=== PATIENT | female | born 1930 | race Caucasian/White ===

== ENCOUNTER 2016-10-28 16:06 | Emergency (ER) | payer MEDICARE, BC ==
[2016-10-28] MEDS ORDERED: ASPIRIN 81 MG TABLET, CHEWABLE PO ONE (16:22)
[2016-10-28 16:34] LABS: ABSOLUTE EOSINOPHILS # (AUTO) 0.2 10^3/uL (0.0-0.6); ABSOLUTE LYMPHOCYTES (AUTO) 1.7 10^3/uL (0.5-4.7); ABSOLUTE MONOCYTES (AUTO) 0.5 10^3/uL (0.1-1.4); ABSOLUTE NEUT (AUTO) 3.8 10^3/uL (1.7-8.2); BASOPHILS % (AUTO) 0.2 % (0-2); EOSINOPHILS % (AUTO) 3.1 % (0-6); HEMATOCRIT 41.6 % (36.0-47.0); HEMOGLOBIN 13.5 g/dL (12.0-15.5); HGB HCT DIFFERENCE -1.1; LYMPHOCYTES % (AUTO) 27.7 % (13-45); MEAN CORPUSCULAR HEMOGLOBIN 28.2 pg (27.0-33.4); MEAN CORPUSCULAR HGB CONC 32.5 g/dL (32.0-36.0); MEAN CORPUSCULAR VOLUME 87 fl (80-97); MONOCYTES % (AUTO) 7.4 % (3-13); SEGMENTED NEUTROPHILS % (AUTO) 61.6 % (42-78); WHITE BLOOD COUNT 6.2 10^3/uL (4.0-10.5)
[2016-10-28 16:42] LABS: ALANINE AMINOTRANSFERASE 18 U/L (9-52); ALBUMIN 3.4 g/dL (3.5-5.0); ALKALINE PHOSPHATASE 112 U/L (38-126); ANION GAP 11 (5-19); ASPARTATE AMINO TRANSFERASE 18 U/L (14-36); BILIRUBIN,TOTAL 0.7 mg/dL (0.2-1.3); BLOOD UREA NITROGEN 22 mg/dL (7-20); CALCIUM 8.7 mg/dL (8.4-10.2); CARBON DIOXIDE 25 mmol/L (22-30); CHLORIDE 105 mmol/L (98-107); CREATINE KINASE 48 U/L (30-135); CREATININE RESULT 1.86 mg/dL (0.52-1.25); GLUCOSE 99 mg/dL (75-110); POTASSIUM 4.5 mmol/L (3.6-5.0); SODIUM 141.2 mmol/L (137-145); TOTAL PROTEIN 7.1 g/dL (6.3-8.2)
[2016-10-28 16:57] LABS: CREATINE KINASE MB 0.94 ng/mL (<4.55)
[2016-10-28 16:58] LABS: TROPONIN I < 0.012 ng/mL
--- NOTE | 2016-10-28 17:20 | ER Document Report ---
ED General - General Mode of Arrival: Medic Information source: Patient TRAVEL OUTSIDE OF THE [place] IN LAST 30 DAYS: No - HPI Patient complains to provider of: Chest Pain Onset: This morning - 0400 Onset/Duration: Sudden, Persistent Associated symptoms: Chest pain. denies: Sweating <EDGARDO WEEKS - Last Filed: 10/28/16 17:54> <SIGIFREDO RHODES - Last Filed: 10/28/16 19:56> - General Chief Complaint: Chest Pain Stated Complaint: LEFT ARM PAIN Notes: Patient is an 86-year-old female presenting to the emergency department concerned of chest pain onset at 0400 this morning. Patient describes the pain as a sharp pain that radiates into her left arm and back. Patient took 3 nitroglycerin at approximately 0400 when she first noticed the pain, it helped for a while, but the pain returned. At about 0700, patient took another 3 nitroglycerin, which again helped, but the pain returned. Patient has taken a total of 8 nitroglycerin today. Patient has a history of 4 heart attacks, the most recent being greater than 12 years ago. Patient has had a 4 vessel bypass and a pacemaker. Patient denies diaphoresis or shortness of breath. (EDGARDO WEEKS) - Related Data Allergies/Adverse Reactions: iodine [Iodine] Allergy (Verified 03/22/15 11:33) BREATHING nitrofurantoin macrocrystalline [From Macrodantin] Allergy (Verified 03/22/15 11 :33) RASH Sulfa (Sulfonamide Antibiotics) Allergy (Verified 03/22/15 11:33) FAINTED Past Medical History - Social History Smoking Status: Unknown if Ever Smoked Cigarette use (# per day): No Chew tobacco use (# tins/day): No Frequency of alcohol use: None Family History: Reviewed & Not Pertinent - Past Medical History Cardiac Medical History: Reports: Hx Congestive Heart Failure, Hx Heart Attack - 4, Hx Hypercholesterolemia, Hx Hypertension - COREG Pulmonary Medical History: Denies: Hx Asthma Neurological Medical History: Denies: Hx Cerebrovascular Accident, Hx Seizures Endocrine Medical History: Reports: Hx Diabetes Mellitus Type 2 Malignancy Medical History: Reports: Hx Renal (Kidney) Cancer GI Medical History: Denies: Hx Hepatitis, Hx Hiatal Hernia, Hx Ulcer Musculoskeltal Medical History: Reports Hx Arthritis Infectious Medical History: Denies: Hx Hepatitis Past Surgical History: Reports: Hx Cardiac Surgery - pacer/defib placement, Hx Kidney (Renal Surgery) - Left nephrectomy, Hx Open Heart Surgery - CABG, CHF, Hx Pacemaker. Denies: Hx Hysterectomy, Hx Mastectomy - Immunizations Hx Diphtheria, Pertussis, Tetanus Vaccination: No Hx Pneumococcal Vaccination: 09/29/11 <EDGARDO WEEKS - Last Filed: 10/28/16 17:54> Review of Systems - Review of Systems Constitutional: No symptoms reported. denies: Diaphoresis EENT: No symptoms reported Cardiovascular: See HPI, Chest pain Respiratory: No symptoms reported Gastrointestinal: No symptoms reported Genitourinary: No symptoms reported Female Genitourinary: No symptoms reported Musculoskeletal: See HPI, Back pain, Other - Pain over Left shoulder into arm Skin: No symptoms reported Hematologic/Lymphatic: No symptoms reported Neurological/Psychological: No symptoms reported <EDGARDO WEEKS - Last Filed: 10/28/16 17:54> Physical Exam - General General appearance: Alert - Respiratory Respiratory status: No respiratory distress Chest status: Tender - Tenderness to left ribs Breath sounds: Normal Chest palpation: Normal - Cardiovascular Rhythm: Regular Heart sounds: Normal auscultation Murmur: No - Abdominal Inspection: Obese Distension: No distension Bowel sounds: Normal Tenderness: Nontender Organomegaly: No organomegaly - Back Back: Normal, Nontender - Extremities General lower extremity: Normal inspection Shoulder: Tender - Left shoulder tender to palpation - Neurological Neuro grossly intact: Yes Cognition: Normal Markell Coma Scale Eye Opening: Spontaneous Markell Coma Scale Verbal: Oriented Portal Coma Scale Motor: Obeys Commands Portal Coma Scale Total: 15 Speech: Normal - Psychological Associated symptoms: Normal affect, Normal mood - Skin Skin Temperature: Warm Skin Moisture: Dry Skin Color: Normal <EDGARDO WEEKS - Last Filed: 10/28/16 17:54> Course - Laboratory Result Diagrams: 10/28/16 16:10 10/28/16 16:10 <EDGARDO WEEKS - Last Filed: 10/28/16 17:54> - Laboratory Result Diagrams: 10/28/16 16:10 10/28/16 16:10 - EKG Interpretation by [facility] EKG shows normal: Sinus rhythm, [place], Intervals, QRS Complexes, ST-T Waves Rate: Normal - 74 Rhythm: Other - Atrial sensed ventricular paced rhythm <SIGIFREDO RHODES - Last Filed: 10/28/16 19:56> - Re-evaluation Re-evalutation: 10/28/16 19:51 The patient has reproducible chest wall and shoulder pain. The EKG does not show acute change. The initial and repeat troponins are undetectable several hours after the onset of constant pain. (SIGIFREDO RHODES) - Vital Signs Vital signs: Temp Pulse Resp BP Pulse Ox 98.4 F 14 153/73 H 95 10/28/16 19:20 10/28/16 19:17 10/28/16 19:17 10/28/16 19:17 (EDGARDO WEEKS) (SIGIFREDO RHODES) - Laboratory Laboratory results interpreted by me: 10/28/16 16:10 BUN 22 H Creatinine 1.86 H Est GFR ( Amer) 31 L Est GFR (Non-Af Amer) 26 L Albumin 3.4 L (EDGARDO WEEKS) (SIGIFREDO RHODES) Discharge <EDGARDO WEEKS - Last Filed: 10/28/16 17:54> <SIGIFREDO RHODES - Last Filed: 10/28/16 19:56> - Discharge Clinical Impression: Chest wall pain Shoulder pain, left Qualifiers: Chronicity: acute Qualified Code(s): M25.512 - Pain in left shoulder Condition: Stable Disposition: HOME, SELF-CARE Additional Instructions: Chest Wall and Left Shoulder Muscle Pain: Your chest pain has been diagnosed as coming from the chest wall. This is often caused by straining the muscles or joints in the chest during physical activity, direct trauma, coughing, or vigorous vomiting. Occasionally, no cause can be found. Rest from strenuous physical activity. This kind of chest and shoulder pain is usually made worse by movement of the arm. If the pain is new, and seems to be due to muscle strain, cold packs can help. Otherwise, apply gentle warmth to the painful area for 15 minutes every hour or two. You should contact the doctor immediately if things change. Further evaluation is needed if you develop a fever or cough, if the nature of the pain changes, or if you become short of breath. TAKE TYLENOL FOR PAIN. TRY MOIST HEAT. FOLLOW UP WITH YOUR DOCTOR TOMORROW IF NOT IMPROVING. RETURN TO THE EMERGENCY ROOM IF ANY NEW OR WORSENING SYMPTOMS. Scribe Attestation: 10/28/16 19:56 I personally performed the services described in the documentation, reviewed and edited the documentation which was dictated to the scribe in my presence, and it accurately records my words and actions. (SIGIFREDO RHODES) Scribe Documentation - Scribe Written by J Luis:: Edgardo Weeks 10/28/2016 1720 acting as scribe for :: Bertha <EDGARDO WEEKS - Last Filed: 10/28/16 17:54>
[2016-10-28 20:26] VITALS: BP 160/82
--- NOTE | 2016-10-29 00:03 | EKG REPORT ---
SEVERITY:- ABNORMAL ECG - ATRIAL-SENSED VENTRICULAR-PACED RHYTHM : Confirmed by: Barbara Joseph 29-Oct-2016 00:02:59
== END 2016-10-28 20:26 | disposition home or self-care (01) ==
LOC: ER 16:06
DX: R07.89 Other chest pain (principal); M25.512 Pain in left shoulder; M79.602 Pain in left arm; I50.9 Heart failure, unspecified; I11.0 Hypertensive heart disease with heart failure; E66.9 Obesity, unspecified; E78.00 Pure hypercholesterolemia, unspecified; E11.9 Type 2 diabetes mellitus without complications; I25.2 Old myocardial infarction; Z85.528 Personal history of other malignant neoplasm of kidney; Z88.2 Allergy status to sulfonamides; Z95.810 Presence of automatic (implantable) cardiac defibrillator; Z95.2 Presence of prosthetic heart valve
CPT/HCPCS: 36415; 71010; 80053; 82550; 82553; 84484; 85025; 93005; 93010; 99285

== ENCOUNTER 2018-10-11 06:21 | Inpatient (IN) | payer MEDICARE, BC ==
[2018-10-11] MEDS ORDERED: NORMAL SALINE 1000 ML 1,000 ML IV ONE (06:51)
[2018-10-11 07:02] LABS: ABSOLUTE MONOCYTES (AUTO) 0.4 10^3/uL (0.1-1.4); ABSOLUTE NEUT (AUTO) 4.4 10^3/uL (1.7-8.2); BASOPHILS % (AUTO) 0.4 % (0-2); EOSINOPHILS % (AUTO) 0.1 % (0-6); HEMATOCRIT 42.7 % (36.0-47.0); LYMPHOCYTES % (AUTO) 17.5 % (13-45); MEAN CORPUSCULAR HEMOGLOBIN 29.4 pg (27.0-33.4); MEAN CORPUSCULAR HGB CONC 32.8 g/dL (32.0-36.0); MEAN CORPUSCULAR VOLUME 90 fl (80-97); MONOCYTES % (AUTO) 7.4 % (3-13); PLATELET COUNT 170 10^3/uL (150-450); RED BLOOD COUNT 4.76 10^6/uL (3.72-5.28); RED CELL DISTRIBUTION WIDTH 14.3 % (11.5-14.0); SEGMENTED NEUTROPHILS % (AUTO) 74.6 % (42-78); TOTAL CELLS COUNTED % (AUTO) 100 %; WHITE BLOOD COUNT 5.9 10^3/uL (4.0-10.5)
[2018-10-11 07:06] LABS: INTERNATIONAL RATION (INR) 1.11; PROTHROMBIN TIME 14.9 SEC (11.4-15.4)
[2018-10-11 07:11] LABS: VENOUS BLOOD BASE EXCESS -7.1 mmol/L; VENOUS BLOOD PCO2 35.1 mmHg (35-63); VENOUS BLOOD PH 7.33 (7.30-7.42)
[2018-10-11 07:21] LABS: ALANINE AMINOTRANSFERASE 91 U/L (9-52); ALBUMIN 3.9 g/dL (3.5-5.0); ALKALINE PHOSPHATASE 91 U/L (38-126); ANION GAP 13 (5-19); ASPARTATE AMINO TRANSFERASE 117 U/L (14-36); BILIRUBIN,DIRECT 0.5 mg/dL (0.0-0.4); BILIRUBIN,TOTAL 1.5 mg/dL (0.2-1.3); BLOOD UREA NITROGEN 37 mg/dL (7-20); CALCIUM 9.2 mg/dL (8.4-10.2); CARBON DIOXIDE 17 mmol/L (22-30); CHLORIDE 108 mmol/L (98-107); CREATINE KINASE 58 U/L (30-135); GLUCOSE 169 mg/dL (75-110); SODIUM 137.6 mmol/L (137-145); TOTAL PROTEIN 6.8 g/dL (6.3-8.2)
[2018-10-11 07:28] LABS: POTASSIUM 6.1 mmol/L (3.6-5.0)
[2018-10-11] MEDS ORDERED: ALBUTEROL SULFATE 0.083% NEB 2.5 MG/3 ML AMPUL NEB ONE (07:28)
[2018-10-11] MEDS ORDERED: INSULIN REG, HUMAN 100 UNIT/ML 3 ML VIAL (PYX) IV ONE (07:29)
[2018-10-11] MEDS ORDERED: CALCIUM GLUCONATE 1000 MG/10 ML INJ IV ONE (07:29)
[2018-10-11] MEDS ORDERED: DEXTROSE 50%-WATER 25 GM/50 ML DISP.SYRIN IV ONE (07:29)
--- NOTE | 2018-10-11 07:38 | RADIOLOGY REPORT (SQ) ---
CLINICAL HISTORY: ams COMPARISON: None. TECHNIQUE: XR CHEST 1 VIEW 10/11/2018 7:12 AM CORRECTIONS NURSE FINDINGS: The heart is moderately enlarged following sternotomy. Left AICD is in place.Lungs are clear without consolidation, atelectasis, mass or edema. There is no pleural effusion. There is no pneumothorax. There are no acute osseous findings. IMPRESSION: Clear lungs.
[2018-10-11 07:39] LABS: TROPONIN I 0.056 ng/mL
[2018-10-11 07:45] LABS: AMORPHOUS SEDIMENT,URINE TRACE /HPF; APPEARANCE,URINE SLIGHTLY-CLOUDY; BILIRUBIN,URINE NEGATIVE (NEGATIVE); COLOR,URINE YELLOW; GLUCOSE, URINE NEGATIVE (NEGATIVE); KETONES,URINE NEGATIVE (NEGATIVE); LEUKOCYTE ESTERASE,URINE MODERATE (NEGATIVE); NITRITE,URINE NEGATIVE (NEGATIVE); PROTEIN,URINE NEGATIVE (NEGATIVE); URINE SPECIFIC GRAVITY 1.013; UROBILINOGEN,URINE NEGATIVE mg/dL (<2.0)
[2018-10-11 08:02] LABS: ACETAMINOPHEN < 10 ug/mL (10-30); ALCOHOL < 10 mg/dL (NONE DETECTED); SALICYLATE < 1.0 mg/dL (2.0-20.0)
[2018-10-11 08:02] LABS: URINE AMPHETAMINES SCREEN NEGATIVE; URINE BARBITURATES SCREEN NEGATIVE; URINE BENZODIAZEPINES SCREEN NEGATIVE; URINE COCAINE SCREEN NEGATIVE; URINE MARIJUANA (THC) SCREEN NEGATIVE; URINE METHADONE SCREEN NEGATIVE; URINE PHENCYCLIDINE SCREEN NEGATIVE
[2018-10-11] MEDS ORDERED: DEXTROSE 5%-WATER 250 ML with NOREPINEPHRINE BITARTRATE 4 MG IV PRN ×2 (08:07)
[2018-10-11] MEDS ORDERED: SODIUM BICARBONATE 8.4% INJ 50 MEQ/50 ML DISP.SYRIN IV ONE (08:11)
[2018-10-11] MEDS ORDERED: CEFTRIAXONE 1 GM/D5W RTU 1 GM/50 ML RTUPB IV ONE ×2 (08:11→10:58)
[2018-10-11] MEDS ORDERED: NOREPINEPHRINE BITARTRATE INJ/PF 4 MG/4 ML SDV IV ONE (08:38)
--- NOTE | 2018-10-11 08:47 | EKG REPORT ---
SEVERITY:- ABNORMAL ECG - SINUS TACHYCARDIA LEFT BUNDLE BRANCH BLOCK : Confirmed by: Jerson Moulton MD 11-Oct-2018 08:46:55
--- NOTE | 2018-10-11 08:47 | EKG REPORT ---
SEVERITY:- ABNORMAL ECG - SINUS TACHYCARDIA FIRST DEGREE AV BLOCK LEFT BUNDLE BRANCH BLOCK : Confirmed by: Jerson Moulton MD 11-Oct-2018 08:46:36
[2018-10-11] MEDS ORDERED: NORMAL SALINE 500 ML IV ONE ×2 (09:11→10:40)
[2018-10-11 09:54] LABS: ANION GAP 10 (5-19); BLOOD UREA NITROGEN 38 mg/dL (7-20); CALCIUM 8.1 mg/dL (8.4-10.2); CARBON DIOXIDE 20 mmol/L (22-30); CHLORIDE 109 mmol/L (98-107); GLUCOSE 221 mg/dL (75-110); SODIUM 139.4 mmol/L (137-145)
[2018-10-11 10:01] LABS: POTASSIUM 3.9 mmol/L (3.6-5.0)
--- NOTE | 2018-10-11 10:12 | RADIOLOGY REPORT (SQ) ---
EXAM DESCRIPTION: CHEST SINGLE VIEW COMPLETED DATE/TIME: 10/11/2018 9:49 am REASON FOR STUDY: CENTRAL LINE PLACEMENT COMPARISON: Chest radiograph earlier the same day EXAM PARAMETERS: NUMBER OF VIEWS: One view. TECHNIQUE: Single frontal radiographic view of the chest acquired. RADIATION DOSE: NA LIMITATIONS: None. FINDINGS: LUNGS AND PLEURA: No opacities, masses or pneumothorax. No pleural effusion. MEDIASTINUM AND HILAR STRUCTURES: No masses. Contour normal. HEART AND VASCULAR STRUCTURES: Heart enlarged. No overt failure. BONES: No acute findings. HARDWARE: New venous access catheter via right IJ approach. Tip at cavoatrial junction. Other cardi ac hardware stable. OTHER: No other significant finding. IMPRESSION: New venous access catheter tip at the expected location. No pneumothorax. TECHNICAL DOCUMENTATION: JOB ID: [id number] [employer]- All Rights Reserved Reading location - IP/workstation name: [email or web address]
--- NOTE | 2018-10-11 10:49 | RADIOLOGY REPORT (SQ) ---
EXAM DESCRIPTION: CT HEAD WITHOUT COMPLETED DATE/TIME: 10/11/2018 10:37 am REASON FOR STUDY: ams COMPARISON: 01/30/2014 TECHNIQUE: Axial images acquired through the brain without intravenous contrast. Images reviewed wi th bone, brain and subdural windows. Additional sagittal and coronal reconstructions were generated. Images stored on PACS. All CT scanners at this facility use dose modulation, iterative reconstruction, and/or weight based d osing when appropriate to reduce radiation dose to as low as reasonably achievable (ALARA). [facility]: Dose Right [facility]: CareDose [facility]: Dose Right [facility]: Teradose 4D [facility]: Smart [employer] RADIATION DOSE: CT Rad equipment meets quality standard of care and radiation dose reduction techniq ues were employed. CTDIvol: 48.6 mGy. DLP: 905 mGy-cm.mGy. LIMITATIONS: None. FINDINGS: VENTRICLES: Prominent. CEREBRUM: No masses. No hemorrhage. No midline shift. Areas of low density in the white matter mos t likely due to chronic micro-vascular ischemic change. No evidence for acute infarction. Old right parietal infarct. CEREBELLUM: No masses. No hemorrhage. No alteration of density. No evidence for acute infarction. EXTRAAXIAL SPACES: Age-related involutional change. No fluid collections. No masses. ORBITS AND GLOBE: No intra- or extraconal masses. Normal contour of globe without masses. CALVARIUM: No fracture. PARANASAL SINUSES: No fluid or mucosal thickening. SOFT TISSUES: No mass or hematoma. OTHER: No other significant finding. IMPRESSION: CHRONIC CHANGES OF ATROPHY AND MICROVASCULAR ISCHEMIA. Old right parietal infarct. NO ACUTE PROCESS. EVIDENCE OF ACUTE STROKE: NO. TECHNICAL DOCUMENTATION: JOB ID: [id number] Quality ID # [id number]: Final reports with documentation of one or more dose reduction techniques (e.g., Au tomated exposure control, adjustment of the mA and/or kV according to patient size, use of iterative reconstruction technique) 2010 [employer]- All Rights Reserved Reading location - IP/workstation name: [email or web address]
[2018-10-11 11:00] LABS: A TYPE INFLUENZA AG NEGATIVE (NEGATIVE); B INFLUENZA AG NEGATIVE (NEGATIVE)
[2018-10-11] MEDS ORDERED: ACETAMINOPHEN 325 MG TABLET PO PRN (11:45)
[2018-10-11] MEDS ORDERED: ONDANSETRON HCL INJ/PF 4 MG/2 ML SDV IV PRN (11:45)
[2018-10-11] MEDS ORDERED: NITROGLYCERIN 0.4 MG/TAB 25 TAB/BOTTLE SL PRN (11:51)
[2018-10-11] MEDS ORDERED: PROPYLENE GLYCOL OP PRN (11:51)
[2018-10-11] MEDS ORDERED: PEG OP PRN (11:51)
--- NOTE | 2018-10-11 12:05 | ER Document Report ---
ED General - General Chief Complaint: Altered Mental Status Stated Complaint: TROUBLE BREATHING Time Seen by Provider: 10/11/18 06:40 TRAVEL OUTSIDE OF THE [place] IN LAST 30 DAYS: No - HPI Patient complains to provider of: Altered mental status Notes: Patient was brought in for altered mental status. According EMS called for altered mental state. Fortunately initial evaluation there is no family at bedside. Patient upon my evaluation looks to be sleeping arouses to voice is able to answer simple yes/no questions however is confused to date time and year. Patient also also repeats herself. Patient is tachycardic upon my evaluation. Patient is very adamant that she is in no pain no chest pain abdominal pain patient denies any fever chills nausea vomiting diarrhea. Family later arrives and is able to add to the HPI process. States that the patient has not been eating or drinking hardly like her normal self for the past 24 hours. States the patient mostly can take care of herself at home usually is a no x3. A brief review of the patient's past medical records available in [employer] was performed - Related Data Allergies/Adverse Reactions: iodine [Iodine] Allergy (Verified 03/22/15 11:33) BREATHING nitrofurantoin macrocrystalline [From Macrodantin] Allergy (Verified 03/22/15 11:33) RASH Sulfa (Sulfonamide Antibiotics) Allergy (Verified 03/22/15 11:33) FAINTED Past Medical History - Social History Smoking Status: Unknown if Ever Smoked Family History: Reviewed & Not Pertinent Patient has suicidal ideation: No Patient has homicidal ideation: No - Past Medical History Cardiac Medical History: Reports: Hx Congestive Heart Failure, Hx Heart Attack - 4, Hx Hypercholesterolemia, Hx Hypertension - COREG Pulmonary Medical History: Denies: Hx Asthma Neurological Medical History: Denies: Hx Cerebrovascular Accident, Hx Seizures Endocrine Medical History: Reports: Hx Diabetes Mellitus Type 2 Renal/ Medical History: Denies: Hx Peritoneal Dialysis Malignancy Medical History: Reports: Hx Renal (Kidney) Cancer GI Medical History: Denies: Hx Hepatitis, Hx Hiatal Hernia, Hx Ulcer Musculoskeletal Medical History: Reports Hx Arthritis Infectious Medical History: Denies: Hx Hepatitis Past Surgical History: Reports: Hx Cardiac Surgery - pacer/defib placement, Hx Kidney (Renal Surgery) - Left nephrectomy, Hx Open Heart Surgery - CABG, CHF, Hx Pacemaker. Denies: Hx Hysterectomy, Hx Mastectomy - Immunizations Hx Diphtheria, Pertussis, Tetanus Vaccination: No Hx Pneumococcal Vaccination: 09/29/11 Review of Systems - Review of Systems -: Yes ROS unobtainable due to patient's medical condition - Altered mental state Physical Exam - Vital signs Vitals: Resp Pulse Ox 22 H 95 10/11/18 06:29 10/11/18 06:29 Interpretation: Tachycardic - General General appearance: Appears well, Alert - HEENT Head: Normocephalic, Atraumatic Eyes: Normal Pupils: PERRL - Respiratory Respiratory status: No respiratory distress Chest status: Nontender Breath sounds: Normal Chest palpation: Normal - Cardiovascular Rhythm: Tachycardia Heart sounds: Normal auscultation Murmur: No - Abdominal Inspection: Normal Distension: No distension Bowel sounds: Normal Tenderness: Nontender Organomegaly: No organomegaly - Back Back: Normal, Nontender - Extremities General upper extremity: Normal inspection, Nontender, Normal color, Normal ROM, Normal temperature General lower extremity: Normal inspection, Nontender, Normal color, Normal ROM, Normal temperature, Normal weight bearing. No: Fritz's sign - Neurological Neuro grossly intact: Yes Cognition: Normal Wheelwright Coma Scale Eye Opening: Spontaneous Wheelwright Coma Scale Verbal: Confused Markell Coma Scale Motor: Obeys Commands Markell Coma Scale Total: 14 Speech: Normal Motor strength normal: LUE, RUE, LLE, RLE Sensory: Normal - Psychological Associated symptoms: Normal affect, Normal mood - Skin Skin Temperature: Warm Skin Moisture: Dry Skin Color: Normal Course - Re-evaluation Re-evalutation: 10/11/18 14:22 Ms. laboratory states that shows significant signs of hyperkalemia. EKG did show upon response with widening. Patient was initially treated with IV calcium gluconate upon initiation of the IV calcium gluconate patient became significantly hypotensive with systolics in the 40s. This was stopped patient reevaluated EKGs not show any acute changes again reevaluation patient denied any pain denies any chest pain or abdominal pain. IV fluids were administered with subsequent slight improvement of her blood pressure to the 80s and hence to systolics in the 90s. After long discussion with the family member stated that they did want medical treatment at that time agreed to no intubation but did agree with administration of Levophed and placement of a central line. This was placed as noted. Patient continued to improve her blood pressure with levo fed. They also continue to gently hydrate the patient as he does have a history of CHF. Discussed with the hospital staff will admit the patient to general medical floor as after the hospitalist did discuss the patient's prognosis and medical conditions with the family decided to make the family member a DNR. Levophed was withheld. More likely patient has underlying sepsis due to urinary tract infection - Vital Signs Vital signs: Temp Pulse Resp BP Pulse Ox 97.6 F 19 129/78 H 100 10/11/18 12:29 10/11/18 13:41 10/11/18 13:41 10/11/18 13:41 - Laboratory Result Diagrams: 10/11/18 06:45 10/11/18 09:19 Laboratory results interpreted by me: 10/11/18 10/11/18 10/11/18 06:45 06:45 06:45 RDW 14.3 H VBG HCO3 Potassium 6.1 H* Chloride 108 H Carbon Dioxide 17 L BUN 37 H Creatinine 2.92 H Est GFR ( Amer) 18 L Est GFR (Non-Af Amer) 15 L Glucose 169 H POC Glucose Calcium Total Bilirubin 1.5 H Direct Bilirubin 0.5 H AST 117 H ALT 91 H Ammonia NT-Pro-B Natriuret Pep 42578 H Lipase Urine Blood Ur Leukocyte Esterase Salicylates Acetaminophen 10/11/18 10/11/18 10/11/18 06:45 06:45 06:45 RDW VBG HCO3 18.0 L Potassium Chloride Carbon Dioxide BUN Creatinine Est GFR ( Amer) Est GFR (Non-Af Amer) Glucose POC Glucose Calcium Total Bilirubin Direct Bilirubin AST ALT Ammonia < 8.7 L NT-Pro-B Natriuret Pep Lipase 309.9 H Urine Blood Ur Leukocyte Esterase Salicylates Acetaminophen 10/11/18 10/11/18 10/11/18 06:45 07:12 07:23 RDW VBG HCO3 Potassium Chloride Carbon Dioxide BUN Creatinine Est GFR ( Amer) Est GFR (Non-Af Amer) Glucose POC Glucose 165 H Calcium Total Bilirubin Direct Bilirubin AST ALT Ammonia NT-Pro-B Natriuret Pep Lipase Urine Blood MODERATE H Ur Leukocyte Esterase MODERATE H Salicylates < 1.0 L Acetaminophen < 10 L 10/11/18 10/11/18 08:08 09:19 RDW VBG HCO3 Potassium Chloride 109 H Carbon Dioxide 20 L BUN 38 H Creatinine 2.91 H Est GFR ( Amer) 18 L Est GFR (Non-Af Amer) 15 L Glucose 221 H POC Glucose 164 H Calcium 8.1 L Total Bilirubin Direct Bilirubin AST ALT Ammonia NT-Pro-B Natriuret Pep Lipase Urine Blood Ur Leukocyte Esterase Salicylates Acetaminophen Procedures - Central Line Right Internal jugular Consent obtained: Yes Central line pre-insertion: Sterile PPE donned, Betadine prep applied, Chloraprep applied, Sterile drapes applied Central line lumen type: Triple Anesthetic type: 1% Lidocaine mL's of anesthesia: 2 Ultrasound guided: Yes CM at insertion site: 20 Line secured with sutures: Yes Central line post-insertion: Blood return from lumens, Sutured, Sterile dressing applied, Position confirmed w/ CXR Number of attempts: 2 - Initially tried left side however had difficulty passing the wire Complications: No Critical Care Note - Critical Care Note Total time excluding time spent on procedures (mins): 50 Comments: Multiple evaluation for patient with sepsis and [id number] Discharge - Discharge Clinical Impression: Urinary tract infection, Coronary artery disease, Sepsis, Diabetes, Acute on chronic kidney disease, Congestive heart failure (CHF), Pacemaker Condition: Fair Disposition: ADMITTED INPATIENT Admitting Provider: Hospitalist - [facility] Admitted: Medical Floor
[2018-10-11] MEDS ORDERED: NORMAL SALINE 1000 ML 1,000 ML IV PRN (12:11)
--- NOTE | 2018-10-11 12:40 | PDOC H&P ---
History of Present Illness Admission Date/PCP: 10/11/18 12:07 Patient complains of: Family brought her to the ER with complaints of diarrhea and dehydration. History of Present Illness: CANDY DOUGHERTY is a 88 year old female with history of congestive heart failure with defibrillator/pacemaker, coronary artery disease with a stent placements, renal carcinoma status post left kidney removal, history of hypertension and diabetes came to the emergency room actually brought to the emergency room after she was less responsive and slid off the couch according to the son she also has large loose stools this morning EMS was called brought to the emergency room for further evaluation. The workup was done in the ER found to have a UTI and potassium of 6.1 calcium gluconate was given in the ER followed by dropping the blood pressures patient was stopped started on Levophed and IV fluids given gentle IV fluids because of the underlying history of congestive heart failure and medical consult was called for admission. I went to talk to the patient in the emergency room she is alert and awake communicating very well son is at bedside no confusion at all initially the ER physician thought patient was in altered mental status as mentioned above by the time and went to see the patient she is back to her baseline. Patient denies any history of fever but given the cough for the last 3-4 days whitish sputum no nausea no vomiting one episode of large loose stool this morning no headaches no falls no dizziness. Denies any changes in the appetite. She has this chronic rash on her face as per the family it was there for a long time may be at least few months. Last living well situation with the patient she admitted that she does not have a living well but both sons have a power of animal physiologist privileges. Patient and son wants to be DNR/DNI the document was signed and given to the given to the nurse charge. Past Medical History Cardiac Medical History: Reports: Congestive Heart Failure, Myocardial Infarction - 4, Hyperlipidema, Hypertension - COREG Pulmonary Medical History: Denies: Asthma Neurological Medical History: Denies: Seizures Endocrine Medical History: Reports: Diabetes Mellitus Type 2 Malignancy Medical History: Reports: Renal (Kidney) Cancer GI Medical History: Denies: Hepatitis, Hiatal Hernia Musculoskeltal Medical History: Reports: Arthritis Hematology: Denies: Anemia, Sickle Cell Disease Past Surgical History Past Surgical History: Reports: Cholecystectomy, Pacemaker Denies: Amputation, Hysterectomy, Mastectomy Social History Smoking Status: Never Smoker Frequency of Alcohol Use: None Hx Recreational Drug Use: No Hx Prescription Drug Abuse: No - Advance Directive Resuscitation Status: Do Not Resuscitate Family History Family History: Reviewed & Not Pertinent Parental Family History Reviewed: Yes - Of the sons has a lymphoma. Children Family History Reviewed: Yes Sibling(s) Family History Reviewed.: Yes Medication/Allergy Allergies/Adverse Reactions: iodine [Iodine] Allergy (Verified 03/22/15 11:33) BREATHING nitrofurantoin macrocrystalline [From Macrodantin] Allergy (Verified 03/22/15 11:33) RASH Sulfa (Sulfonamide Antibiotics) Allergy (Verified 03/22/15 11:33) FAINTED Physical Exam Vital Signs: Temp Pulse Resp BP Pulse Ox 97.4 F 18 84/66 L 97 10/11/18 09:25 10/11/18 12:11 10/11/18 12:11 10/11/18 12:11 Intake & Output 10/10/18 10/11/18 10/12/18 06:59 06:59 06:59 Intake Total 532 Balance 532 Weight 76.1 kg General appearance: PRESENT: no acute distress Head exam: PRESENT: atraumatic Eye exam: PRESENT: PERRLA Mouth exam: PRESENT: dry mucosa Neck exam: ABSENT: carotid bruit, JVD, lymphadenopathy, thyromegaly Respiratory exam: PRESENT: clear to auscultation lino. ABSENT: rales, rhonchi, wheezes Cardiovascular exam: PRESENT: RRR. ABSENT: diastolic murmur, rubs, systolic murmur GI/Abdominal exam: PRESENT: normal bowel sounds, soft. ABSENT: distended, guarding, mass, organolmegaly, rebound, tenderness Extremities exam: PRESENT: full ROM. ABSENT: calf tenderness, clubbing, pedal e pete Neurological exam: PRESENT: alert, awake, oriented to person, oriented to place, oriented to time, oriented to situation, CN II-XII grossly intact. ABSENT: motor sensory deficit Psychiatric exam: PRESENT: appropriate affect, normal mood. ABSENT: homicidal ideation, suicidal ideation Skin exam: PRESENT: rash Results Laboratory Results: 10/11/18 06:45 10/11/18 09:19 10/11/18 10/11/18 10/11/18 06:45 06:45 06:45 WBC 5.9 RBC 4.76 Hgb 14.0 Hct 42.7 MCV 90 MCH 29.4 MCHC 32.8 RDW 14.3 H Plt Count 170 Seg Neutrophils % 74.6 Lymphocytes % 17.5 Monocytes % 7.4 Eosinophils % 0.1 Basophils % 0.4 Absolute Neutrophils 4.4 Absolute Lymphocytes 1.0 Absolute Monocytes 0.4 Absolute Eosinophils 0.0 Absolute Basophils 0.0 VBG pH VBG pCO2 VBG HCO3 VBG Base Excess Sodium 137.6 Potassium 6.1 H* Chloride 108 H Carbon Dioxide 17 L Anion Gap 13 BUN 37 H Creatinine 2.92 H Est GFR ( Amer) 18 L Est GFR (Non-Af Amer) 15 L Glucose 169 H Lactic Acid 2.1 Calcium 9.2 Total Bilirubin 1.5 H AST 117 H ALT 91 H Alkaline Phosphatase 91 Ammonia Total Protein 6.8 Albumin 3.9 Lipase Urine Color Urine Appearance Urine pH Ur Specific [place] Urine Protein Urine Glucose (UA) Urine Ketones Urine Blood Urine Nitrite Ur Leukocyte Esterase Urine WBC (Auto) Urine RBC (Auto) 10/11/18 10/11/18 10/11/18 06:45 06:45 06:45 WBC RBC Hgb Hct MCV MCH MCHC RDW Plt Count Seg Neutrophils % Lymphocytes % Monocytes % Eosinophils % Basophils % Absolute Neutrophils Absolute Lymphocytes Absolute Monocytes Absolute Eosinophils Absolute Basophils VBG pH 7.33 VBG pCO2 35.1 VBG HCO3 18.0 L VBG Base Excess -7.1 Sodium Potassium Chloride Carbon Dioxide Anion Gap BUN Creatinine Est GFR ( Amer) Est GFR (Non-Af Amer) Glucose Lactic Acid Calcium Total Bilirubin AST ALT Alkaline Phosphatase Ammonia < 8.7 L Total Protein Albumin Lipase 309.9 H Urine Color Urine Appearance Urine pH Ur Specific [place] Urine Protein Urine Glucose (UA) Urine Ketones Urine Blood Urine Nitrite Ur Leukocyte Esterase Urine WBC (Auto) Urine RBC (Auto) 10/11/18 10/11/18 10/11/18 07:12 09:19 11:08 WBC RBC Hgb Hct MCV MCH MCHC RDW Plt Count Seg Neutrophils % Lymphocytes % Monocytes % Eosinophils % Basophils % Absolute Neutrophils Absolute Lymphocytes Absolute Monocytes Absolute Eosinophils Absolute Basophils VBG pH VBG pCO2 VBG HCO3 VBG Base Excess Sodium 139.4 Potassium 3.9 D Chloride 109 H Carbon Dioxide 20 L Anion Gap 10 BUN 38 H Creatinine 2.91 H Est GFR ( Amer) 18 L Est GFR (Non-Af Amer) 15 L Glucose 221 H Lactic Acid 1.2 Calcium 8.1 L Total Bilirubin AST ALT Alkaline Phosphatase Ammonia Total Protein Albumin Lipase Urine Color YELLOW Urine Appearance SLIGHTLY-CLOUDY Urine pH 5.0 Ur Specific [place] 1.013 Urine Protein NEGATIVE Urine Glucose (UA) NEGATIVE Urine Ketones NEGATIVE Urine Blood MODERATE H Urine Nitrite NEGATIVE Ur Leukocyte Esterase MODERATE H Urine WBC (Auto) 29 Urine RBC (Auto) 10 10/11/18 10/11/18 06:45 06:45 Creatine Kinase 58 Troponin I 0.056 NT-Pro-B Natriuret Pep 40395 H Impressions: Chest X-Ray 10/11/18 07:12 IMPRESSION: Clear lungs. Head CT 10/11/18 07:13 IMPRESSION: CHRONIC CHANGES OF ATROPHY AND MICROVASCULAR ISCHEMIA. Old right parietal infarct. NO ACUTE PROCESS. EVIDENCE OF ACUTE STROKE: NO. Assessment & Plan - Diagnosis (1) Urinary tract infection Is this a current diagnosis for this admission?: Yes Plan: 10/11/2018 plan today is to place the patient in the medical floor because she is DNR/DNI lactic acid is going to repeat at this moment this evening initial lactic acid level is 1.2. Patient was started on IV Rocephin 1 g daily and levofloxacin to 50 mg IV daily because of the creatinine close to 4.0. Urine cultures blood cultures are pending. Sepsis protocol was initiated. (2) Sepsis Is this a current diagnosis for this admission?: Yes Plan: 10/11/2018 patient became hypotensive in the emergency room she was started on Levophed she is also became tachycardic altered mental status was noticed by the ER physician. So with this information patient's meets the criteria for sepsis protocol. Cultures urine culture was sent and patient was started on IV Rocephin 1 g daily and levofloxacin to 50 mg IV daily and repeat lactic acid is pending. Was started on gentle IV fluids at 50 cc/h because of the history of underlying congestive heart failure. (3) Chronic kidney disease, stage 4, severely decreased GFR Is this a current diagnosis for this admission?: Yes Plan: 10/11/2018 patient has history of renal cell carcinoma with left nephrectomy. Creatinine was 2.9 with a GFR of 15.[address] to [address] a consult for nephrology to follow tomorrow. (4) Congestive heart failure (CHF) Is this a current diagnosis for this admission?: Yes Plan: 10/11/2018 family and the patient is given the history of congestive heart failure with a pacemaker defibrillator we do not have any recent echocardiogram going to request for the echocardiogram today. - Time Time Spent: 50 to 70 Minutes Critical Time spent with patient: 15-24 minutes Medications reviewed and adjusted accordingly: Yes Anticipated discharge: Home
[2018-10-11] MEDS ORDERED: PROPYLENE GLYCOL OU PRN (15:34)
[2018-10-11] MEDS ORDERED: PEG OU PRN (15:34)
[2018-10-11] MEDS: DOCUSATE SODIUM 100 MG CAPSULE PO SCH (19:24)
--- NOTE | 2018-10-11 20:35 | EKG REPORT ---
SEVERITY:- ABNORMAL ECG - ATRIAL-SENSED VENTRICULAR-PACED RHYTHM : Confirmed by: Jerson Moulton MD 11-Oct-2018 20:34:45
[2018-10-11] MEDS ORDERED: FLUTICASONE NASAL SPRAY 50 MCG/SPRY 120 SPRAY/16 GM NASL PRN (22:00)
[2018-10-11] MEDS ORDERED: CARVEDILOL 6.25 MG TABLET PO SCH (22:00)
[2018-10-11] MEDS ORDERED: ATORVASTATIN CALCIUM 20 MG TABLET PO SCH (22:00)
[2018-10-12 04:57] LABS: ABSOLUTE MONOCYTES (AUTO) 0.3 10^3/uL (0.1-1.4); ABSOLUTE NEUT (AUTO) 3.6 10^3/uL (1.7-8.2); BASOPHILS % (AUTO) 0.2 % (0-2); EOSINOPHILS % (AUTO) 0.1 % (0-6); HEMATOCRIT 33.1 % (36.0-47.0); LYMPHOCYTES % (AUTO) 20.6 % (13-45); MEAN CORPUSCULAR HEMOGLOBIN 29.5 pg (27.0-33.4); MEAN CORPUSCULAR HGB CONC 33.4 g/dL (32.0-36.0); MEAN CORPUSCULAR VOLUME 89 fl (80-97); MONOCYTES % (AUTO) 5.8 % (3-13); PLATELET COUNT 122 10^3/uL (150-450); RED BLOOD COUNT 3.74 10^6/uL (3.72-5.28); RED CELL DISTRIBUTION WIDTH 13.9 % (11.5-14.0); SEGMENTED NEUTROPHILS % (AUTO) 73.3 % (42-78); TOTAL CELLS COUNTED % (AUTO) 100 %
[2018-10-12 05:18] LABS: ALANINE AMINOTRANSFERASE 242 U/L (9-52); ALBUMIN 2.5 g/dL (3.5-5.0); ALKALINE PHOSPHATASE 59 U/L (38-126); ANION GAP 6 (5-19); ASPARTATE AMINO TRANSFERASE 252 U/L (14-36); BILIRUBIN,DIRECT 0.4 mg/dL (0.0-0.4); BILIRUBIN,TOTAL 0.6 mg/dL (0.2-1.3); BLOOD UREA NITROGEN 42 mg/dL (7-20); CALCIUM 7.9 mg/dL (8.4-10.2); CARBON DIOXIDE 21 mmol/L (22-30); CHLORIDE 114 mmol/L (98-107); GLUCOSE 87 mg/dL (75-110); POTASSIUM 4.2 mmol/L (3.6-5.0); SODIUM 140.7 mmol/L (137-145)
[2018-10-12] MEDS ORDERED: NITROGLYCERIN 0.4 MG/TAB 25 TAB/BOTTLE SL PRN (09:22)
[2018-10-12] MEDS: CARVEDILOL 6.25 MG TABLET PO SCH ×2 (09:58→21:39)
[2018-10-12] MEDS: ASPIRIN 81 MG TABLET, ENT COATED PO SCH (09:58)
[2018-10-12] MEDS: DOCUSATE SODIUM 100 MG CAPSULE PO SCH ×2 (09:59→17:29)
[2018-10-12] MEDS: ENOXAPARIN SODIUM INJ 30 MG/0.3 ML DISP.SYRIN SUBCUT SCH (10:00)
[2018-10-12] MEDS ORDERED: CEFTRIAXONE INJ 1000 MG VIAL IV SCH (10:00)
[2018-10-12] MEDS: BISACODYL 5 MG TABEC PO PRN (10:00)
[2018-10-12] MEDS: LEVOFLOXACIN 250 MG/D5W RTU 250 MG/50 ML RTUPB IV SCH (10:01)
[2018-10-12] MEDS: CEFTRIAXONE 1 GM/D5W RTU 1 GM/50 ML RTUPB IV SCH (10:11)
--- NOTE | 2018-10-12 10:14 | PDOC PROGRESS REPORT ---
Subjective Progress Note for:: 10/12/18 Subjective:: 88-year-old female admitted with hypotension sepsis and UTI that was blood pressure is improved to 1255/62 and T-max is 98. Cultures are negative so far. Patient is able to participate in the physical therapy today. No acute events in the last 24 hours. Afebrile. Comfortably in the bed communicating very well. Complaining of slight cough requesting Mucinex. Reason For Visit: SEPSIS Physical Exam Vital Signs: Temp Pulse Resp BP Pulse Ox 98.0 F 73 14 125/62 96 10/12/18 08:05 10/12/18 08:05 10/12/18 08:05 10/12/18 08:05 10/12/18 08:05 Intake & Output 10/11/18 10/12/18 10/13/18 06:59 06:59 06:59 Intake Total 1582 Balance 1582 Weight 76.1 kg 79.7 kg General appearance: PRESENT: no acute distress Head exam: PRESENT: atraumatic Eye exam: PRESENT: PERRLA Mouth exam: PRESENT: moist Neck exam: ABSENT: carotid bruit, JVD, lymphadenopathy, thyromegaly Respiratory exam: PRESENT: clear to auscultation lino. ABSENT: rales, rhonchi, wheezes Cardiovascular exam: PRESENT: RRR. ABSENT: diastolic murmur, rubs, systolic murmur GI/Abdominal exam: PRESENT: normal bowel sounds, soft. ABSENT: distended, guarding, mass, organolmegaly, rebound, tenderness Extremities exam: PRESENT: full ROM. ABSENT: calf tenderness, clubbing, pedal edema Neurological exam: PRESENT: alert, awake, oriented to person, oriented to place, oriented to time, oriented to situation, CN II-XII grossly intact. ABSENT: motor sensory deficit Psychiatric exam: PRESENT: appropriate affect, normal mood. ABSENT: homicidal ideation, suicidal ideation Results Laboratory Results: 10/12/18 04:00 10/12/18 04:00 10/11/18 10/11/18 10/12/18 11:08 15:02 04:00 WBC 5.0 RBC 3.74 Hgb 11.0 L D Hct 33.1 L MCV 89 MCH 29.5 MCHC 33.4 RDW 13.9 Plt Count 122 L Seg Neutrophils % 73.3 Lymphocytes % 20.6 Monocytes % 5.8 Eosinophils % 0.1 Basophils % 0.2 Absolute Neutrophils 3.6 Absolute Lymphocytes 1.0 Absolute Monocytes 0.3 Absolute Eosinophils 0.0 Absolute Basophils 0.0 Sodium Potassium Chloride Carbon Dioxide Anion Gap BUN Creatinine Est GFR ( Amer) Est GFR (Non-Af Amer) Glucose Lactic Acid 1.2 0.6 L Calcium Magnesium Total Bilirubin AST ALT Alkaline Phosphatase Total Protein Albumin TSH 10/12/18 10/12/18 04:00 04:00 WBC RBC Hgb Hct MCV MCH MCHC RDW Plt Count Seg Neutrophils % Lymphocytes % Monocytes % Eosinophils % Basophils % Absolute Neutrophils Absolute Lymphocytes Absolute Monocytes Absolute Eosinophils Absolute Basophils Sodium 140.7 Potassium 4.2 Chloride 114 H Carbon Dioxide 21 L Anion Gap 6 BUN 42 H Creatinine 2.44 H Est GFR ( Amer) 23 L Est GFR (Non-Af Amer) 19 L Glucose 87 Lactic Acid Calcium 7.9 L Magnesium 1.7 Total Bilirubin 0.6 AST 252 H ALT 242 H Alkaline Phosphatase 59 Total Protein 5.0 L Albumin 2.5 L TSH 1.15 10/11/18 10/11/18 06:45 06:45 Creatine Kinase 58 Troponin I 0.056 NT-Pro-B Natriuret Pep [id number] H Impressions: Chest X-Ray 10/11/18 07:12 IMPRESSION: Clear lungs. Head CT 10/11/18 07:13 IMPRESSION: CHRONIC CHANGES OF ATROPHY AND MICROVASCULAR ISCHEMIA. Old right parietal infarct. NO ACUTE PROCESS. EVIDENCE OF ACUTE STROKE: NO. Assessment & Plan - Diagnosis (1) Urinary tract infection Is this a current diagnosis for this admission?: Yes Plan: 10/11/2018 plan today is to place the patient in the medical floor because she is DNR/DNI lactic acid is going to repeat at this moment this evening initial lactic acid level is 1.2. Patient was started on IV Rocephin 1 g daily and levofloxacin to 500 mg IV daily because of the creatinine close to 4.0. Urine cultures blood cultures are pending. Sepsis protocol was initiated. 10/12/2018 patient is getting IV Rocephin 1 g daily levofloxacin 500 mg IV daily. Urine cultures and blood cultures are pending. T-max is 98 today. Hypotension is resolved. Plan is to continue the present management. (2) Sepsis Is this a current diagnosis for this admission?: Yes Plan: 10/11/2018 patient became hypotensive in the emergency room she was started on Levophed she is also became tachycardic altered mental status was noticed by the ER physician. So with this information patient's meets the criteria for sepsis protocol. Cultures urine culture was sent and patient was started on IV R ocephin 1 g daily and levofloxacin to 50 mg IV daily and repeat lactic acid is pending. Was started on gentle IV fluids at 50 cc/h because of the history of underlying congestive heart failure. 10/12/2018-patient was admitted with sepsis hypotension tachycardia altered mental status. Altered mental status is resolved hypotension is resolved patient's heart rate is 73 today. On IV Rocephin 1 g daily levofloxacin 500 mg IV daily repeat lactic acid level is 0.6. Plan is to continue the present management. (3) Chronic kidney disease, stage 4, severely decreased GFR Is this a current diagnosis for this admission?: Yes Plan: 10/11/2018 patient has history of renal cell carcinoma with left nephrectomy. Creatinine was 2.9 with a GFR of 15.0 [address] to place a consult for nephrology to follow tomorrow. 10/12/2018 patient has history of left kidney removal secondary to renal cancer. Admission creatinine is 2.9 improved to 2.44 with IV fluids acute on chronic kidney injury is resolving. Plan is to repeat the labs tomorrow. (4) Congestive heart failure (CHF) Is this a current diagnosis for this admission?: Yes Plan: 10/11/2018 family and the patient is given the history of congestive heart failure with a pacemaker defibrillator we do not have any recent echocardiogram going to request for the echocardiogram today. 10/12/2018-patient has history of congestive heart failure patient is not in fluid overload chest was clear no pedal edema, awaiting for the echocardiogram report. (5) Abnormal EKG Is this a current diagnosis for this admission?: Yes Plan: 10/12/2018 patient EKG shows first-degree heart block, tachycardia ,and left bundle branch block. - Time Time Spent with patient: 15-24 minutes Medications reviewed and adjusted accordingly: Yes Anticipated discharge: Home
--- NOTE | 2018-10-12 17:12 | PDOC CONSULTATION ---
Consultation Consult Date: 10/12/18 Attending physician:: FARRUKH MCCLENDON Consult reason:: I was asked to see this patient because of worsening kidney function with history of left nephrectomy previously. History of Present Illness Admission Date/PCP: 10/11/18 12:07 History of Present Illness: CANDY DOUGHERTY is a 88 year old female with history of coronary artery disease, congestive heart failure, hypertension, hyperlipidemia, renal cell carcinoma status post left nephrectomy many years ago who was brought in to the emergency room by EMS because of initial thought of unresponsiveness and possible dehydration with diarrhea. Patient's caregiver Brianna is on bedside during this evaluation. She knows the patient because she comes to take care of her 3 times a week. According to her the son said that he heard a yell renewable energy engineer and when he came to check on her in her room she was unresponsive in her recliner. There was also a lot of loose stools all over the place. Her caregiver Brianna thought that she could be dehydrated because she has not really been drinking much fluids including water. Patient was then brought into the emergency room and was found to have hypotension with blood pressure as low as 84/66. Initial evaluation also showed urinary tract infection and possibility of sepsis. Her potassium was also elevated initially at 6.1. She also has elevated BUN of 37, creatinine of 2.92 with estimated GFR of 15 yesterday. Today she has a BUN of 42 and creatinine of 2.44 with estimated GFR of 19. Patient was given gentle IV fluid hydration since admission. She was started on IV antibiotics. For the hypotension he was initially given some Levoped in the emergency room which she is currently off now. Her chest x-ray is negative. Urinalysis again showed cecy dence of UTI with moderate blood, and moderate leukocytes with urine culture now growing gram-negative rods pending sensitivity today the patient said she is feeling fine and she could not remember anything at all from yesterday. She denies any nausea or vomiting. She still has a little bit of a loose stool but her C. difficile is negative. Her appetite is also not the greatest. Her caregiver said that she was feeling tired and has a little bit of cough last Friday. Otherwise patient denies any chest pains, shortness of breath, nausea, vomiting nor any other complaints. She denies any history of hepatitis nor use of any nonsteroidal anti-inflammatory agents. Patient had her left nephrectomy many years ago for renal cell carcinoma. She was not treated with either chemo or radiation therapy after surgery. She has been following up with [facility] at least yearly being the next appointment in on December of this year. From previous records here in the hospital her last blood work for kidney function was done around 2014 and it looks like her creatinine ranges anywhere between 1.8-2.14 with estimated GFR between 22-26. Urine output is not currently quantified. Past Medical History Cardiac Medical History: Reports: CHF-Systolic, Coronary Artery Disease, Hyperlipidemia, Hypertension-primary, Myocardial Infarction - x 4 Endocrine Medical History: Reports: Diabetes Mellitus Type 2 - Previously treated but was told she no longer needs treatment for this Renal/ Medical History: Reports: Chronic Kidney Disease Stage IV Malignancy Medical History: Reports: Renal (Kidney) Cancer - Status post left nephrectomy Musculoskeltal Medical History: Reports: Arthritis Past Surgical History Past Surgical History: Reports: Cholecystectomy, Nephrectomy - Left for renal cell carcinoma, Pacemaker Social History Information Source: Patient, Friend Smoking Status: Former Smoker Frequency of Alcohol Use: None Hx Recreational Drug Use: No Hx Prescription Drug Abuse: No Past Social History Note: Her son lives with her - Advance Directive Resuscitation Status: Do Not Resuscitate Family History Family History: CAD - Her father of heart attack, brother also had an [place] Parental Family History Reviewed: Yes Children Family History Reviewed: Yes Sibling(s) Family History Reviewed.: Yes Medication/Allergy Home Medications: Aspirin [Adult Low Dose Aspirin EC] 81 mg PO QAM 10/11/18 Atorvastatin Calcium [Lipitor 40 mg Tablet] 40 mg PO QHS 10/11/18 Carvedilol [Coreg 6.25 mg Tablet] 6.25 mg PO Q12 10/11/18 Cholecalciferol (Vitamin D3) [Vitamin D3 1000 Unit Tablet] 1,000 unit PO QAM 10/11/18 Nitroglycerin [Nitrostat 0.4 mg (1/150 Gr) Tabs 25/Bottle] 0.4 mg SL Q5MP PRN 10/11/18 Allergies/Adverse Reactions: iodine [Iodine] Allergy (Verified 03/22/15 11:33) BREATHING nitrofurantoin macrocrystalline [From Macrodantin] Allergy (Verified 03/22/15 11:33) RASH Sulfa (Sulfonamide Antibiotics) Allergy (Verified 03/22/15 11:33) FAINTED Review of Systems All systems: reviewed and no additional remarkable complaints except as stated Review of Systems: Constitutional: ABSENT: chills, fatigue, fever(s), headache(s), weight gain, weight loss; admits decreased appetite Eyes: ABSENT: visual disturbances Ears: ABSENT: hearing changes Cardiovascular: ABSENT: chest pain, dyspnea on exertion, edema, orthropnea, palpitations Respiratory: ABSENT: cough, dyspnea, hemoptysis Gastrointestinal: ABSENT: abdominal pain, constipation, hematemesis, hemat ochezia, nausea, vomiting; admits to having loose stools Genitourinary: ABSENT: dysuria, hematuria Musculoskeletal: ABSENT: joint swelling Integumentary: ABSENT: rash, wounds Neurological: ABSENT: abnormal gait, abnormal speech, confusion, dizziness, focal weakness, numbness, syncope Psychiatric: ABSENT: anxiety, depression Endocrine: ABSENT: cold intolerance, heat intolerance, polydipsia, polyuria Hematologic/Lymphatic: ABSENT: easy bleeding, easy bruising, lymphadenopathy Physical Exam Vital Signs: Temp Pulse Resp BP Pulse Ox 98.5 F 74 18 114/51 L 98 10/12/18 11:39 10/12/18 14:00 10/12/18 11:39 10/12/18 11:39 10/12/18 11:39 Intake & Output 10/11/18 10/12/18 10/13/18 06:59 06:59 06:59 Intake Total 1582 337 Balance 1582 337 Weight 76.1 kg 79.7 kg Exam: General appearance: No acute distress, cooperative, well-developed, well- nourished Head exam: PRESENT: atraumatic, normocephalic Eye exam: PRESENT: Conjunctiva pale, EOMI, PERRLA. ABSENT: conjunctival injection, scleral icterus Mouth exam: PRESENT: moist, neck supple, tongue midline Neck exam: PRESENT: full ROM. ABSENT: carotid bruit, JVD, lymphadenopathy, thyromegaly Respiratory exam: PRESENT: clear to auscultation bilaterally. ABSENT: rales, rhonchi, stridor, wheezes Cardiovascular exam: PRESENT: RRR, +S1, +S2. ABSENT: systolic murmur Pulses: PRESENT: normal radial pulses, normal dorsalis pedis pulses GI/Abdominal exam: PRESENT: normal bowel sounds, soft. ABSENT: guarding, mass, tenderness Rectal exam: Deferred Extremities exam: PRESENT: full ROM. ABSENT: calf tenderness, pedal edema Musculoskeletal: PRESENT: full ROM. ABSENT: deformity Neurological exam: PRESENT: alert, Awake, Oriented to person, Oriented to place, Oriented to time, reflexes normal, CN II-XII grossly intact. ABSENT: motor sensory deficit Psychiatric exam: PRESENT: appropriate affect, normal mood. ABSENT: homicidal ideation, suicidal ideation Skin exam: PRESENT: intact, dry, warm. ABSENT: rash Results Laboratory Results: 10/12/18 04:00 10/12/18 04:00 10/12/18 10/12/18 10/12/18 04:00 04:00 04:00 WBC 5.0 RBC 3.74 Hgb 11.0 L D Hct 33.1 L MCV 89 MCH 29.5 MCHC 33.4 RDW 13.9 Plt Count 122 L Seg Neutrophils % 73.3 Lymphocytes % 20.6 Monocytes % 5.8 Eosinophils % 0.1 Basophils % 0.2 Absolute Neutrophils 3.6 Absolute Lymphocytes 1.0 Absolute Monocytes 0.3 Absolute Eosinophils 0.0 Absolute Basophils 0.0 Sodium 140.7 Potassium 4.2 Chloride 114 H Carbon Dioxide 21 L Anion Gap 6 BUN 42 H Creatinine 2.44 H Est GFR ( Amer) 23 L Est GFR (Non-Af Amer) 19 L Glucose 87 Calcium 7.9 L Magnesium 1.7 Total Bilirubin 0.6 AST 252 H ALT 242 H Alkaline Phosphatase 59 Total Protein 5.0 L Albumin 2.5 L TSH 1.15 10/11/18 10/11/18 06:45 06:45 Creatine Kinase 58 Troponin I 0.056 NT-Pro-B Natriuret Pep 62561 H Impressions: Chest X-Ray 10/11/18 07:12 IMPRESSION: Clear lungs. Head CT 10/11/18 07:13 IMPRESSION: CHRONIC CHANGES OF ATROPHY AND MICROVASCULAR ISCHEMIA. Old right parietal infarct. NO ACUTE PROCESS. EVIDENCE OF ACUTE STROKE: NO. Assessment & Plan - Diagnosis (1) Acute kidney injury Is this a current diagnosis for this admission?: Yes Plan: Worsening of kidney function likely secondary to prerenal azotemia secondary to combination of poor oral intake causing dehydration, acute diarrhea and urinary tract infection. Kidney function starts improving with gentle IV fluid hydration. Today I encouraged the patient to drink adequate amount of fluids including water and discussed the importance of it even at home. Her IV fluids have been discontinued so we have to be rely on her oral fluid intake. Patient seems to understand the importance of it and said that she is going to try her best to drink adequate amount of fluids. (2) Chronic kidney disease, stage 4, severely decreased GFR Is this a current diagnosis for this admission?: Yes Plan: Patient has history of left nephrectomy for renal cell carcinoma. Discussed with patient that if her kidney function deteriorates treatment for that would be renal replacement therapy in the form of dialysis. She states that she did not want to be on dialysis. So I encouraged her to do the right thing including adequate fluid intake, avoidance of nonsteroidal anti-inflammatory medications to take care of her one kidney. She understood. (3) Urinary tract infection Is this a current diagnosis for this admission?: Yes Plan: Due to gram-negative rods currently on antibiotics. (4) Sepsis Is this a current diagnosis for this admission?: Yes Plan: Patient initially presented with hypotension and some mental status change on top of a urinary tract infection. Currently improved. (5) Diarrhea Is this a current diagnosis for this admission?: Yes Plan: C. difficile negative. - Notes Notes: Thank you very much for this consultation. We will follow patient with you. - Time Time Spent: 50 to 70 Minutes
--- NOTE | 2018-10-12 18:27 | XCELERA REPORT ---
[address] [address] Transthoracic Echocardiogram Report Name: CANDY DOUGHERTY Age: 88 yrs Gender: Female : 1930 Patient Status: Inpatient Patient Location: [address] Study Date: 10/11/2018 01:03 PM Procedure: A two-dimensional transthoracic echocardiogram with color flow and Doppler was performed. Study Quality: Poor. Poor endocarrdial visualisation.No 'true apical 2 chamber views.Poor doppler interogation. Reason For Study: chf History: CHF. Ordering Physician: FARRUKH MCCLENDON Performed By: Yung Burciaga Interpretation Summary Poor endocarrdial visualisation.No 'true apical 2 chamber views.Poor doppler interogation. Of the novak seen thereis severely reduced LVEF 25% to 30%.No LVH.Mildly diated LV size.There is a glimpse of a Pacemaer or AICD lead in the RV,There is mild MR.Unable to interpret any other valve pathology.No True apical 2 chamber views obtained.Hence cannot comment on the apical anterior , the basal anterior, the basal inferior and apical inferior novak.The mid anterior , the mid inferior and the rest of the LV novak are severely hypoknetic. MMode/2D Measurements & Calculations RVDd: 1.9 cm LVIDd: 6.0 cm FS: 15.6 % Ao root diam: 2.8 cm IVSd: 0.94 cm LVIDs: 5.0 cm EDV(Teich): 177.5 ml Ao root area: 6.0 cm2 LVPWd: 1.1 cm ESV(Teich): 120.1 ml EF(Teich): 32.3 % LA dimension: 2.8 cm LVOT diam: 2.2 cm LVOT area: 3.9 cm2 Doppler Measurements & Calculations MV E max triny: MV P1/2t max triny: Ao V2 max: LV V1 max P.4 cm/sec 121.3 cm/sec 92.1 cm/sec 1.3 mmHg MV P1/2t: 77.5 msec Ao max PG: LV V1 mean P.8 mmHg 1.1 mmHg MVA(P1/2t): 2.8 cm2 Ao V2 mean: LV V1 max: MV dec slope: 82.9 cm/sec 54.5 cm/sec 458.5 cm/sec2 Ao mean PG: LV V1 mean: MV dec time: 0.12 sec 3.2 mmHg 49.8 cm/sec Ao V2 VTI: LV V1 VTI: 12.3 cm 21.3 cm CARLOS(I,D): 2.2 cm2 CARLOS(V,D): 2.3 cm2 MR max triny: SV(LVOT): 47.7 ml PA V2 max: TR max triny: 350.7 cm/sec 71.7 cm/sec 226.2 cm/sec MR max PG: PA max PG: TR max P.2 mmHg 2.2 mmHg 20.5 mmHg MV P1/2t-pr_phl: 77.5 msec Left Ventricle Of the novak seen thereis severely reduced LVEF 25% to 30%.No LVH.Mildly diated LV size.There is a glimpse of a Pacemaer or AICD lead in the RV,There is mild MR.Unable to interpret any other valve pathology.No True apical 2 chamber views obtained.Hence cannot comment on the apical anterior , the basal anterior, the basal inferior and apical inferior novak.The mid anterior , the mid inferior and the rest of the LV novak are severely hypoknetic. : FARRUKH MCCLENDON > Arianna Bocanegra
[2018-10-12] MEDS: GUAIFENESIN 600 MG TABLET.SA PO SCH (21:40)
[2018-10-12] MEDS ORDERED: ATORVASTATIN CALCIUM 40 MG TABLET PO SCH (22:00)
[2018-10-13 06:19] LABS: ABSOLUTE LYMPHOCYTES (AUTO) 0.9 10^3/uL (0.5-4.7); ABSOLUTE MONOCYTES (AUTO) 0.3 10^3/uL (0.1-1.4); ABSOLUTE NEUT (AUTO) 3.7 10^3/uL (1.7-8.2); BASOPHILS % (AUTO) 0.2 % (0-2); EOSINOPHILS % (AUTO) 0.6 % (0-6); HEMATOCRIT 33.3 % (36.0-47.0); HEMOGLOBIN 11.2 g/dL (12.0-15.5); MEAN CORPUSCULAR HEMOGLOBIN 29.6 pg (27.0-33.4); MEAN CORPUSCULAR HGB CONC 33.5 g/dL (32.0-36.0); MEAN CORPUSCULAR VOLUME 88 fl (80-97); MONOCYTES % (AUTO) 6.3 % (3-13); PLATELET COUNT 136 10^3/uL (150-450); RED BLOOD COUNT 3.77 10^6/uL (3.72-5.28); SEGMENTED NEUTROPHILS % (AUTO) 74.9 % (42-78); TOTAL CELLS COUNTED % (AUTO) 100 %; WHITE BLOOD COUNT 4.9 10^3/uL (4.0-10.5)
[2018-10-13 06:30] LABS: ANION GAP 7 (5-19); BLOOD UREA NITROGEN 32 mg/dL (7-20); CARBON DIOXIDE 21 mmol/L (22-30); CHLORIDE 111 mmol/L (98-107); GLUCOSE 102 mg/dL (75-110); POTASSIUM 4.2 mmol/L (3.6-5.0); SODIUM 138.8 mmol/L (137-145)
[2018-10-13] MEDS ORDERED: CHOLECALCIFEROL (D3) 1,000 UNIT TABLET PO SCH (08:00)
[2018-10-13] MEDS ORDERED: ASPIRIN 81 MG TABLET, ENT COATED PO SCH (08:00)
[2018-10-13] MEDS: CARVEDILOL 6.25 MG TABLET PO SCH (10:00)
[2018-10-13] MEDS: ASPIRIN 81 MG TABLET, ENT COATED PO SCH (10:00)
[2018-10-13] MEDS: GUAIFENESIN 600 MG TABLET.SA PO SCH (10:01)
[2018-10-13] MEDS: DOCUSATE SODIUM 100 MG CAPSULE PO SCH (10:01)
[2018-10-13] MEDS: BISACODYL 5 MG TABEC PO PRN (10:01)
[2018-10-13] MEDS: CEFTRIAXONE 1 GM/D5W RTU 1 GM/50 ML RTUPB IV SCH (10:02)
[2018-10-13] MEDS: ENOXAPARIN SODIUM INJ 30 MG/0.3 ML DISP.SYRIN SUBCUT SCH (10:02)
[2018-10-13] MEDS: LEVOFLOXACIN 250 MG/D5W RTU 250 MG/50 ML RTUPB IV SCH (10:03)
--- NOTE | 2018-10-13 12:06 | PDOC PROGRESS REPORT ---
Subjective Progress Note for:: 10/13/18 Subjective:: Patient seems to be doing better. She actually feels better. It seems like she wanted to go home. He tells me that she is drinking more fluids. Reason For Visit: SEPSIS Physical Exam Vital Signs: Temp Pulse Resp BP Pulse Ox 98.6 F 78 18 138/67 H 96 10/13/18 07:43 10/13/18 07:43 10/13/18 07:43 10/13/18 07:43 10/13/18 07:43 Intake & Output 10/12/18 10/13/18 10/14/18 06:59 06:59 06:59 Intake Total 1582 559 50 Balance 1582 559 50 Weight 79.7 kg 86.7 kg Exam: General appearance: PRESENT: no acute distress, cooperative, well-developed, well-nourished Head exam: PRESENT: atraumatic, normocephalic Eye exam: PRESENT: conjunctiva slightly pale, PERRLA. ABSENT: scleral icterus Neck exam: ABSENT: JVD Respiratory exam: PRESENT: Normal breath sounds. ABSENT: crackles, rales, rhonchi, unlabored, wheezes Cardiovascular exam: PRESENT: Regular rate rhythm -+S1, +S2. ABSENT: diastolic murmur, systolic murmur GI/Abdominal exam: PRESENT: normal bowel sounds, soft. ABSENT: guarding, mass, tenderness Extremities exam: ABSENT: No edema Neurological exam: PRESENT: alert, awake, oriented to person, place and time. Skin exam: PRESENT: dry, warm, Results Laboratory Results: 10/13/18 06:00 10/13/18 06:00 10/13/18 10/13/18 06:00 06:00 WBC 4.9 RBC 3.77 Hgb 11.2 L Hct 33.3 L MCV 88 MCH 29.6 MCHC 33.5 RDW 14.0 Plt Count 136 L Seg Neutrophils % 74.9 Lymphocytes % 18.0 Monocytes % 6.3 Eosinophils % 0.6 Basophils % 0.2 Absolute Neutrophils 3.7 Absolute Lymphocytes 0.9 Absolute Monocytes 0.3 Absolute Eosinophils 0.0 Absolute Basophils 0.0 Sodium 138.8 Potassium 4.2 Chloride 111 H Carbon Dioxide 21 L Anion Gap 7 BUN 32 H Creatinine 1.86 H Est GFR ( Amer) 31 L Est GFR (Non-Af Amer) 26 L Glucose 102 Calcium 8.0 L 10/11/18 10/11/18 06:45 06:45 Creatine Kinase 58 Troponin I 0.056 NT-Pro-B Natriuret Pep 45064 H Impressions: Chest X-Ray 10/11/18 07:12 IMPRESSION: Clear lungs. Head CT 10/11/18 07:13 IMPRESSION: CHRONIC CHANGES OF ATROPHY AND MICROVASCULAR ISCHEMIA. Old right parietal infarct. NO ACUTE PROCESS. EVIDENCE OF ACUTE STROKE: NO. Assessment & Plan - Diagnosis (1) Acute kidney injury Is this a current diagnosis for this admission?: Yes Plan: Due to prerenal azotemia. Currently improved and almost at baseline kidney function. Reiterates to the patient the importance of adequate fluid intake wh en she goes home. (2) Chronic kidney disease, stage 4, severely decreased GFR Is this a current diagnosis for this admission?: Yes Plan: Patient had left nephrectomy for renal cell carcinoma. Currently at baseline kidney function. (3) Urinary tract infection Is this a current diagnosis for this admission?: Yes Plan: Due to Klebsiella pneumoniae sensitive to ceftriaxone. (4) Sepsis Is this a current diagnosis for this admission?: Yes Plan: Improved. (5) Diarrhea Is this a current diagnosis for this admission?: Yes - Notes Notes: No further recommendations from nephrology standpoint. Will sign off at this point. - Time Time with patient: 15-25 minutes
[2018-10-13 13:23] VITALS: BP 121/61
--- NOTE | 2018-10-13 17:47 | PDOC DISCHARGE SUMMARY ---
General - Admit/Disc Date/PCP Admission Date/Primary Care Provider: 10/11/18 12:07 Discharge Date: 10/13/18 - Discharge Diagnosis (1) Acute diarrhea Is this a current diagnosis for this admission?: Yes (2) Urinary tract infection Is this a current diagnosis for this admission?: Yes - Additional Information Resuscitation Status: Do Not Resuscitate Discharge Diet: As Tolerated Discharge Activity: Activity As Tolerated, Balance Activity w/Rest, No Driving, Energy Conservation Prescriptions: Amoxicillin/Potassium Clav [Augmentin 500-125 Tablet] 1 each PO BID 5 Days #10 tablet Home Medications: Aspirin [Adult Low Dose Aspirin EC] 81 mg PO QAM 10/11/18 Atorvastatin Calcium [Lipitor 40 mg Tablet] 40 mg PO QHS 10/11/18 Carvedilol [Coreg 6.25 mg Tablet] 6.25 mg PO Q12 10/11/18 Cholecalciferol (Vitamin D3) [Vitamin D3 1000 Unit Tablet] 1,000 unit PO QAM 10/11/18 Nitroglycerin [Nitrostat 0.4 mg (1/150 Gr) Tabs 25/Bottle] 0.4 mg SL Q5MP PRN 10/11/18 Amoxicillin/Potassium Clav [Augmentin 500-125 Tablet] 1 each PO BID 5 Days #10 tablet 10/13/18 Bisacodyl [Dulcolax 5 mg Tablet] 5 mg PO DAILY PRN tabec 10/13/18 History of Present Illness History of Present Illness: Admitting hospitalist's H&P: CANDY DOUGHERTY is a 88 year old female with history of congestive heart failure with defibrillator/pacemaker, coronary artery disease with a stent placements, renal carcinoma status post left kidney removal, history of hypertension and diabetes came to the emergency room actually brought to the emergency room after she was less responsive and slid off the couch according to the son. She also has large loose stools this morning EMS was called brought to the emergency room for further evaluation. The workup was done in the ER found to have a UTI and low blood pressures (80/40s). Hospital Course Hospital Course: This is a 88 year old female with history of congestive heart failure with defibrillator/pacemaker, coronary artery disease with a stent placements, renal carcinoma status post left kidney removal, history of hypertension and diabetes who was initially brought in due to lethargy and diarrhea. In the ER, she was found to have a UTI and low blood pressures (80/40s). Patient was started on Levophed and IV fluids given with significant improvement of her blood pressures. She was only on levophed for a very short time. She did have leukocytosis and was also found to have a urinary tract infection. She was started on IV antibiotics for her UTI. Her diarrhea did resolve and stools came back to baseline. C diff testing was negative. She continued to improve clinically with no other acute issues. On day of discharge, she felt she was back to her baseline. She will be discharged on 5 more days of PO antibiotic s for UTI. Physical Exam Vital Signs: Temp Pulse Resp BP Pulse Ox 98.7 F 83 16 121/61 97 10/13/18 13:19 10/13/18 13:19 10/13/18 13:19 10/13/18 13:19 10/13/18 13:19 Intake & Output 10/12/18 10/13/18 10/14/18 06:59 06:59 06:59 Intake Total 1582 559 100 Balance 1582 559 100 Weight 175 lb 11.335 oz 191 lb 2.252 oz General appearance: PRESENT: no acute distress, well-developed, well-nourished Head exam: PRESENT: atraumatic, normocephalic Eye exam: PRESENT: conjunctiva pink, EOMI, PERRLA. ABSENT: scleral icterus Ear exam: PRESENT: normal external ear exam Mouth exam: PRESENT: moist, tongue midline Neck exam: ABSENT: carotid bruit, JVD, lymphadenopathy, thyromegaly Respiratory exam: PRESENT: clear to auscultation lino. ABSENT: rales, rhonchi, wheezes Cardiovascular exam: PRESENT: RRR. ABSENT: diastolic murmur, rubs, systolic murmur Pulses: PRESENT: normal dorsalis pedis pul GI/Abdominal exam: PRESENT: normal bowel sounds, soft. ABSENT: distended, guarding, mass, organolmegaly, rebound, tenderness Rectal exam: PRESENT: deferred Neurological exam: PRESENT: alert, awake, oriented to person, oriented to place, oriented to time, oriented to situation, CN II-XII grossly intact. ABSENT: motor sensory deficit Results Laboratory Results: 10/13/18 06:00 10/13/18 06:00 10/13/18 10/13/18 06:00 06:00 WBC 4.9 RBC 3.77 Hgb 11.2 L Hct 33.3 L MCV 88 MCH 29.6 MCHC 33.5 RDW 14.0 Plt Count 136 L Seg Neutrophils % 74.9 Lymphocytes % 18.0 Monocytes % 6.3 Eosinophils % 0.6 Basophils % 0.2 Absolute Neutrophils 3.7 Absolute Lymphocytes 0.9 Absolute Monocytes 0.3 Absolute Eosinophils 0.0 Absolute Basophils 0.0 Sodium 138.8 Potassium 4.2 Chloride 111 H Carbon Dioxide 21 L Anion Gap 7 BUN 32 H Creatinine 1.86 H Est GFR ( Amer) 31 L Est GFR (Non-Af Amer) 26 L Glucose 102 Calcium 8.0 L 10/11/18 10/11/18 06:45 06:45 Creatine Kinase 58 Troponin I 0.056 NT-Pro-B Natriuret Pep 52224 H Impressions: Chest X-Ray 10/11/18 07:12 IMPRESSION: Clear lungs. Head CT 10/11/18 07:13 IMPRESSION: CHRONIC CHANGES OF ATROPHY AND MICROVASCULAR ISCHEMIA. Old right parietal infarct. NO ACUTE PROCESS. EVIDENCE OF ACUTE STROKE: NO. Qualifiers - * PATIENT BEING DISCHARGED WITH ANY OF THE FOLLOWING DIAGNOSIS: No
[2018-10-14] MEDS ORDERED: LISINOPRIL 5 MG TABLET PO SCH (10:00)
== END 2018-10-13 15:24 | disposition home health service (06) | DRG 872 ==
LOC: ER 06:21 → EH 12:07 → 3W 17:41
PROVIDERS: ADMIT Internal Medicine; ATTEND Internal Medicine
PROC: 02HV33Z Insertion of Infusion Device into Superior Vena Cava, Percutaneous Approach (ICD-10-PCS; principal; 2018-10-11)
DX: A41.9 Sepsis, unspecified organism (principal); N39.0 Urinary tract infection, site not specified; N17.9 Acute kidney failure, unspecified; I13.0 Hypertensive heart and chronic kidney disease with heart failure and stage 1 through stage 4 chronic kidney disease, or unspecified chronic kidney disease; N18.4 Chronic kidney disease, stage 4 (severe); I50.22 Chronic systolic (congestive) heart failure; Z66 Do not resuscitate; E87.5 Hyperkalemia; R19.7 Diarrhea, unspecified; R41.82 Altered mental status, unspecified; E11.22 Type 2 diabetes mellitus with diabetic chronic kidney disease; E86.0 Dehydration; E78.5 Hyperlipidemia, unspecified; I25.2 Old myocardial infarction; Z85.528 Personal history of other malignant neoplasm of kidney; Z90.5 Acquired absence of kidney; Z95.0 Presence of cardiac pacemaker
CPT/HCPCS: 36415; 51701; 70450; 71045; 80048; 80053; 80307; 81001; 82140; 82550; 82803; 82962; 83036; 83605; 83690; 83735; 83880; 84443; 84484; 85025; 85610; 87040; 87086; 87088; 87186; 87493; 87804; 93005; 93010; 93306; 94640; 96365; 96366; 96367; 96368; 96375; 99291; C1751; J0610; J0696; J1815; J1956; J3490; J7030; J7040; J7060